=== PATIENT | female | born 1980 | race Caucasian/White ===

== ENCOUNTER → 2018-03-28 | Outpatient (CLI) | payer OTHER | LOC: M WHC 08:08 | DX: Z36.9 Encounter for antenatal screening, unspecified (principal); Z3A.17 17 weeks gestation of pregnancy | CPT/HCPCS: 76811 ==

== ENCOUNTER → 2018-04-24 | Outpatient (CLI) | payer OTHER | LOC: M RAD 16:44 | DX: O43.892 Other placental disorders, second trimester (principal); Z36.89 Encounter for other specified antenatal screening; Z3A.19 19 weeks gestation of pregnancy | CPT/HCPCS: 76816 ==

== ENCOUNTER → 2018-05-24 | Outpatient (CLI) | payer OTHER ==
[2018-05-24 14:08] LABS: BASO % 0.4 % (0.0-1.0); EOS # 0.2 10^3/uL (0.0-0.50); EOS % 1.9 % (0.0-3.0); HEMATOCRIT 33.8 % (36.0-47.0); HEMOGLOBIN 11.2 g/dl (12.0-15.5); IMMATURE GRANULOCYTE % 0.6 % (0-3.0); LYMPH # 1.6 10^3/uL (1.5-4.5); MEAN CORPUSCULAR HEMOGLOBIN 31.5 pg (27.0-33.0); MEAN CORPUSCULAR HGB CONC 33.1 g/dl (32.0-36.5); MEAN CORPUSCULAR VOLUME 94.9 fl (80.0-96.0); MONO # 0.5 10^3/uL (0.0-0.8); MONO % 4.8 % (0.0-5.0); NEUTROPHILS # 7.5 10^3/uL (1.8-7.7); NEUTROPHILS % 76.3 % (36.0-66.0); PLATELET COUNT, AUTOMATED 292 10^3/uL (150-450); RED BLOOD COUNT 3.56 10^6/uL (4.00-5.40); RED CELL DISTRIBUTION WIDTH 12.9 % (11.5-14.5); WHITE BLOOD COUNT 9.8 10^3/uL (4.0-10.0)
[2018-05-24 14:38] LABS: GLUCOSE CHALLENGE TEST 1 HOUR 104 MG/DL (LESS THAN 140)
== END ==
LOC: M SMT 08:45
DX: O09.522 Supervision of elderly multigravida, second trimester (principal)
CPT/HCPCS: 82950

== ENCOUNTER → 2018-05-27 | Outpatient (CLI) | payer OTHER | LOC: M RAD 17:20 | DX: O09.522 Supervision of elderly multigravida, second trimester (principal); Z3A.25 25 weeks gestation of pregnancy | CPT/HCPCS: 76816 ==

== ENCOUNTER 2018-06-25 18:23 | Outpatient (CLI) | payer OTHER ==
[2018-06-25] MEDS: LR 1,000 ML IV (19:55)
[2018-06-25] MEDS: BETAMETHASONE SOLUSPAN 6MG/ML INJ 5ML (J0702) IM (20:02)
[2018-06-25 20:13] LABS: BASO # 0.1 10^3/uL (0.0-0.2); BASO % 0.5 % (0.0-1.0); EOS # 0.2 10^3/uL (0.0-0.50); EOS % 1.8 % (0.0-3.0); HEMATOCRIT 34.3 % (36.0-47.0); HEMOGLOBIN 11.6 g/dl (12.0-15.5); IMMATURE GRANULOCYTE % 0.6 % (0-3.0); LYMPH # 2.3 10^3/uL (1.5-4.5); LYMPH % 18.5 % (24.0-44.0); MEAN CORPUSCULAR HEMOGLOBIN 30.8 pg (27.0-33.0); MEAN CORPUSCULAR HGB CONC 33.8 g/dl (32.0-36.5); MONO # 0.7 10^3/uL (0.0-0.8); MONO % 5.7 % (0.0-5.0); NEUTROPHILS # 9.1 10^3/uL (1.8-7.7); NEUTROPHILS % 72.9 % (36.0-66.0); PLATELET COUNT, AUTOMATED 332 10^3/uL (150-450); RED BLOOD COUNT 3.77 10^6/uL (4.00-5.40); RED CELL DISTRIBUTION WIDTH 12.1 % (11.5-14.5); WHITE BLOOD COUNT 12.5 10^3/uL (4.0-10.0)
[2018-06-25 21:06] LABS: APPEARANCE, URINE CLEAR (CLEAR); BACTERIA, URINE AUTO 1+ (NEGATIVE); BILIRUBIN, URINE AUTO NEGATIVE (NEGATIVE); BLOOD, URINE BLOOD NEGATIVE (NEGATIVE); COLOR, URINE STRAW (YELLOW); GLUCOSE, URINE (UA) AUTO NEGATIVE (NEGATIVE); KETONE, URINE AUTO TRACE mg/dL (NEGATIVE); LEUKOCYTE ESTERASE, URINE AUTO NEGATIVE (NEGATIVE); MUCUS, URINE SMALL (NEGATIVE); NITRITE, URINE AUTO NEGATIVE (NEGATIVE); PROTEIN, URINE AUTO NEGATIVE (NEGATIVE); RBC, URINE AUTO 0 /HPF (0-3); SPECIFIC GRAVITY URINE AUTO 1.003 (1.002-1.035); SQUAMOUS EPITHELIAL CELL UR AU 2 /HPF (0-6); UROBILINOGEN, URINE AUTO 0.2 mg/dL (0.0-2.0); WBC, URINE AUTO 0 /HPF (0-3)
[2018-06-26] MEDS: LR 1,000 ML IV (07:40)
[2018-06-26] MEDS: MAG Sulf (L&D) 4 GM/100 ML 4 GM in APPROPRIATE DILUENT 1 EA IV (08:37)
[2018-06-26] MEDS: LABETALOL 100 MG TAB PO (08:45)
[2018-06-26] MEDS: MAG Sulf (OBGYN) 20GM/500ML 20,000 MG in APPROPRIATE DILUENT 1 EA IV (09:02)
[2018-06-26] MEDS ORDERED: ceFAZolin SOD 1 GM in D5W MINI-BAG PLUS 50 ML IV (16:00)
== END 2018-06-26 11:00 | disposition short-term general hospital (02) ==
LOC: M LDO 18:23
DX: O26.873 Cervical shortening, third trimester (principal); Z3A.28 28 weeks gestation of pregnancy; O09.33 Supervision of pregnancy with insufficient antenatal care, third trimester; O09.293 Supervision of pregnancy with other poor reproductive or obstetric history, third trimester
CPT/HCPCS: J3475

== ENCOUNTER → 2018-06-25 | Outpatient (CLI) | payer OTHER | LOC: M RAD 17:07 | DX: O09.522 Supervision of elderly multigravida, second trimester (principal); O10.012 Pre-existing essential hypertension complicating pregnancy, second trimester; Z3A.29 29 weeks gestation of pregnancy | CPT/HCPCS: 76817 ==

== ENCOUNTER → 2018-06-25 | Outpatient (CLI) | payer OTHER ==
[2018-06-25 13:47] LABS: HEMATOCRIT 33.1 % (36.0-47.0); MEAN CORPUSCULAR HGB CONC 33.2 g/dl (32.0-36.5); MEAN CORPUSCULAR VOLUME 93.2 fl (80.0-96.0); PLATELET COUNT, AUTOMATED 325 10^3/uL (150-450); RED BLOOD COUNT 3.55 10^6/uL (4.00-5.40); RED CELL DISTRIBUTION WIDTH 12.2 % (11.5-14.5); WHITE BLOOD COUNT 10.4 10^3/uL (4.0-10.0)
[2018-06-25 14:09] LABS: GLUCOSE CHALLENGE TEST 1 HOUR 123 MG/DL (LESS THAN 140)
== END ==
LOC: M SMT 08:15
DX: Z36.89 Encounter for other specified antenatal screening (principal)
CPT/HCPCS: 82950

== ENCOUNTER → 2018-08-08 | Outpatient (CLI) | payer OTHER ==
[~2018-08-08] MED LIST: LABE10TAB PO; PRENTAB9 PO
--- NOTE | 2018-08-08 16:19 | REP ---
Obstetric sonography: History: Supervision of . growth study. Findings: Scanning through the gravid uterus demonstrates a viable single uterine gestation in a cephalic lie. motion is observed and heart rate is recorded at 136 beats per minute. An anterior grade 2 placenta is seen without evidence of previa or abruption. Amniotic fluid is subjectively normal. Umbilical cord is seen draping across neck. There has been appropriate interval growth. Transvaginal scanning demonstrates no measurable cervix. There is approximately 5 mm of cervical dilation. No abnormality is seen. The following anatomic structures are again identified and felt to be unremarkable: cranium, choroid plexus, cavum, face and profile, diaphragm, left-sided stomach, three-vessel cord, kidneys and bladder. Biometry chart: BPD 8.6 cm = 34 weeks 5 days HC 30.6 cm = 34 weeks 1 day AC 33 cm = 36 weeks 6 days FL 7.0 cm = 35 weeks 5 days HL 5.9 cm = 34 weeks 0 days HC/AC ratio normal 0.93. Cephalic index normal 0.80. Estimated weight 2835 grams, 6 pounds 4 ounces, 51st percentile for 36 weeks 0 days. DANIELE normal 8.1 cm. S/D ratio in the umbilical cord artery by Doppler is normal at 2.80. Impression: 1. Viable single intrauterine gestation at 35 weeks 1 day by today's composite criteria. Expected gestational age estimate based on prior sonography is 36 weeks 0 days. JORGE by prior sonography September 05, 2018. Appropriate interval growth. 2. No measurable cervix, approximately 5 mm of cervical dilation. Viewed transvaginally. Electronically Signed by hSree Vázquez MD 08/08/2018 06:17 P
== END ==
LOC: M RAD 14:56
PROVIDERS: ATTEND Advanced Practice Midwife
DX: O10.013 Pre-existing essential hypertension complicating pregnancy, third trimester (principal); Z3A.35 35 weeks gestation of pregnancy

== ENCOUNTER → 2018-08-09 | Outpatient (REF) | payer OTHER | LOC: M LAB REF 16:55 | PROVIDERS: ATTEND Advanced Practice Midwife | DX: Z34.83 Encounter for supervision of other normal pregnancy, third trimester (principal); Z36.89 Encounter for other specified antenatal screening ==

== ENCOUNTER 2018-08-23 16:08 | Inpatient (IN) | payer OTHER ==
[~2018-08-23] VITALS: Ht 170.2 cm; Wt 85.5 kg
[2018-08-23] MEDS ORDERED: LACTATED RINGER'S 1000 ML IV STA (16:19)
[2018-08-23 16:29] VITALS: BP 136/78
[2018-08-23] MEDS ORDERED: LR 1,000 ML IV SCH (16:41)
[2018-08-23] MEDS ORDERED: OXYTOCIN DRIP 30 UNITS in APPROPRIATE DILUENT 1 EA IV SCH (16:45)
[2018-08-23] MEDS ORDERED: COLA100C5 PO (17:04)
--- NOTE | 2018-08-23 17:04 | HPEPDOC ---
Obstetrical History & Physical General Date of Admission Aug 23, 2018 at 16:08 History of Present Illness Chief Complaint: Induction of labor, Other (CHTN and oligohydramnios) Information Provided By: Patient : 2 Term: 1 Pre-term: 0 Abortions: 0 Livin Care Care: Good Care Dating Final EDC: Sep 13, 2018 Final EDC by: LMP EGA at Admission: 37 Antepartum Course Height (inches): 67 Pre- weight (lbs.): 160 Admission Weight (lbs.): 195 Past Medical History Past Obstetrical History : Past Obstetrical History: Primgravida (01/2015) Type of Delivery: Spontaneous Vaginal Del. Sex of : Male (7#10) Complications: Yes (IOL for HTN) FORGING DIE SINKER History: No pertinent history Past Medical History Medical History CHTN vs white coat syndrome Surgical History: Denies/None Family History Significant Family History: Asthma, Hypertension Social History Marital Status: Family situation: Spouse/partner home Psychosocial History: No pertinent psych hx * Smoker: former Smoker Alcohol: Denies Drugs: denies Allergies Coded Allergies: Penicillins (Verified Allergy, Severe, THROAT CLOSES, 06/25/18) Medications Scheduled Labetalol HCl (Labetalol HCl) 100 Mg Tab, 100 MG PO DAILY Multivitamins/ ( 27-0.8 mg) 1 Tab Tab, 1 TAB PO DAILY Physical Examination Physical Examination GENERAL: Alert and oriented times three. BREAST: . ABDOMEN: Gravid and non-tender to touch. FETUS: Is vertex (VTX) by sterile vaginal examination (SVE), fetus is vertex (VTX) by Gianni. HEART RATE: Regular rate and rhythm. LUNGS: Clear to auscultation (CTA). EXTREMITIES: No edema. No clonus. Deep tendon reflexes (DTRs) + 2 Vital Signs/I&O Vital Signs Date Time Temp Pulse Resp B/P (MAP) Pulse Ox O2 Delivery O2 Flow Rate FiO2 08/23/18 16:29 98.2 81 16 136/78 (97) Laboratory Data 24H LABS Laboratory Tests 2 08/23/18 16:20: Serology Scanned Report Hepatitis B Testing Pertinent Laboratoy Data Blood Type: O+ RBC Antibody Screen: Negative HIV: Negative Hepatitis B: Negative Hepatitis C: Negative Rapid Plasma Reagin: Nonreactive Rubella: Immune Chlamydia/Gonorrhea: Negative Group B Streptococcus: Negative Quad Screen Test: Declined Glucose Tolerance Test: 123 Anatomy Ultrasound Ultrasound Date: Apr 24, 2018 Placenta Location: Anterior Normal Anatomy: Yes Placenta Previa: No Estimated Weight (grams): 394 (50%) Other Ultrasounds 03/28/18 dating 17w0d JORGE 09/05/18. Cervix 4.8cm 05/27/18 F/u Closed cervix 4.2cm,35% growth 06/25/18 DANIELE 12.6, cervix with funneling at os, growth 47% 08/08/18 AFV normal, no measurable cervix, dilated 5cm, 51%, DANIELE 8.1cm Steroid Therapy Steroid Therapy: Yes Date #1: Jun 25, 2018 (2nd dose given @ [facility]) Vaginal Examination Dilation: 4 cm (-5) Effacement: 80% Station: -1 Cervical Consistency: Soft Cervical Position: Middle Presentation: Cephalic presentation Assessment Heart Rate (FHR): 135 Variability: Moderate Accelerations: Positive Decelerations: None Tocometer Contractions: Yes Frequency: irregular Strength: palpated as mild Assessment/Plan Assessment Liya is a 37-year-old (G)2 para (P)1-0-0-1 at 37+0 weeks by 17-week ultrasound. Presents to Labor and Delivery (L&D) for induction of labor due to CHTN and oligohydramnios. has been complicated by cervical shortening and dilation resulting in transfer to [facility] @ 28wks. She is Betamethasone complete. She has remained stable and was transferred back to [facility] for the remainder of her . She has been followed for hypertension, treated with labetalol 100mg BID, growth sono's, NST's and DANIELE. Today at a routine office appt her DANIELE was noted to be 5.0, decreased from last week's reading of 8.1. She reports good movement, denies LOF, regular UC or bleeding. Plan Admit and orient per consult Dr Foy Speech Therapy Director and consent. Diet: Clear liquids. Group B Streptococcus (GBS) negative. Labs and intravenous (IV) per unit protocol. Counseled on Pitocin and induction of labor (IOL). Lactated Ringers (LR): Bolus 500 mL, then at 125 mL/hr. Pt plans to labor ad sindy Anticipate normal spontaneous delivery (). C-S as appropriate. Sarah Mccoy CNM Aug 23, 2018 17:04
[2018-08-23 17:27] VITALS: BP 119/73
[2018-08-23 17:28] LABS: HEMATOCRIT 33.5 % (36.0-47.0); HEMOGLOBIN 11.4 g/dl (12.0-15.5); MEAN CORPUSCULAR HEMOGLOBIN 30.8 pg (27.0-33.0); MEAN CORPUSCULAR VOLUME 90.5 fl (80.0-96.0); PLATELET COUNT, AUTOMATED 303 10^3/uL (150-450); WHITE BLOOD COUNT 11.2 10^3/uL (4.0-10.0)
[2018-08-23 17:48] LABS: ALT/SGPT 21 U/L (12-78); BILIRUBIN,TOTAL 0.2 MG/DL (0.2-1.0); CREATININE FOR GFR 0.51 MG/DL (0.55-1.30); GLOMERULAR FILTRATION RATE > 60.0 (>60); LDH LACTATE DEHYDROGENASE 140 U/L (84-246); URIC ACID 4.2 MG/DL (2.6-6.0)
[2018-08-23 17:57] VITALS: BP 123/72
[2018-08-23 18:28] VITALS: BP 133/74
[2018-08-23 18:45] LABS: CREATININE,RANDOM URINE 14.5 MG/DL; TOTAL PROTEIN,RANDOM URINE < 5.0 MG/DL (0.0-12.0)
[2018-08-23 18:51] VITALS: BP 119/78
[2018-08-23] MEDS: LABETALOL 100 MG TAB PO SCH (21:00)
--- NOTE | 2018-08-23 22:25 | IPNPDOC ---
Text Note Date of Service The patient was seen on 08/23/18. NOTE SROM clear fluid, moderate bloody show Pitocin @ 10mu UC 2-3 minutes x 45-60sec, moderate FH 135, Cat I SVE 6/100/0 Pt is coping well VS,Fishbone, I+O VS, Fishbone, I+O Laboratory Tests 08/23/18 17:19 Red Blood Count 3.70 L, Mean Corpuscular Volume 90.5, Mean Corpuscular Hemoglobin 30.8, Mean Corpuscular Hemoglobin Concent 34.0, Red Cell Distribution Width 12.4, Aspartate Amino Transf (AST/SGOT) 18, Alanine Aminotransferase (ALT /SGPT) 21, Lactate Dehydrogenase 140, Total Bilirubin 0.2, Uric Acid 4.2 Vital Signs Date Time Temp Pulse Resp B/P (MAP) Pulse Ox O2 Delivery O2 Flow Rate FiO2 08/23/18 18:51 74 16 119/78 (92) 08/23/18 16:29 98.2 Sarah Mccoy CNM Aug 23, 2018 22:25
[2018-08-24] MEDS ORDERED: SILVER NITRATE APPLICATOR As Ordered ONE (00:03)
[2018-08-24 00:05] LABS: CORD GAS ABE A -3.4; CORD GAS HCO3 A 25.1 MEQ/L; CORD GAS PCO2 A 58.6 mmHg; CORD GAS PH A 7.249 UNITS; CORD GAS PO2 A 25.5 mmHg; CORD GAS SBC A 20.7 MEQ/L; CORD GAS TCO2 A 26.9 MEQ/L
[2018-08-24 00:06] LABS: CORD GAS O2 SAT A 59.4 %
[2018-08-24 00:08] LABS: CORD GAS ABE V -1.7; CORD GAS HCO3 V 23.1 MEQ/L; CORD GAS O2 SAT V 58.6 %; CORD GAS PCO2 V 39.4 mmHg; CORD GAS PH V 7.386 UNITS; CORD GAS PO2 V 21.9 mmHg; CORD GAS SBC V 22.1 MEQ/L; CORD GAS TCO2 V 24.3 MEQ/L
[2018-08-24] MEDS ORDERED: OXYTOCIN 30 UNITS IN 0.9% NaCl 500ML IV BAG (J2590) As Ordered ONE (00:15)
[2018-08-24] MEDS ORDERED: OXYTOCIN DRIP 30 UNITS in APPROPRIATE DILUENT 1 EA IV SCH (00:31)
--- NOTE | 2018-08-24 00:43 | DNPDOC ---
[facility] Delivery Note Delivery Note DATE OF DELIVERY: 08/23/18 PREDELIVERY DIAGNOSIS: 37-0/7 weeks' gestation and labor. POST DELIVERY DIAGNOSIS: Delivered. PROCEDURE: Spontaneous vaginal delivery. Drainage of left vaginal wall cyst Provider: Sarah Mccoy CNM ANESTHESIA: Lidocaine for cyst drainage. ESTIMATED BLOOD LOSS: 400 mL. FINDINGS: 6 pound 12 ounce, 3070gm female infant, Score 8/9, nuchal cord times 1, tight. DELIVERY SUMMARY: Patient is a 37-year-old 2 now para 2-0-0-2 who was admitted to labor and delivery for induction of labor due to chronic hypertension and oligohydramnios. She received pitocin augmentation and labor did progress. Spontaneous rupture of membranes for small amount bloody fluid @ 2216. FD 2318. Viable female delivered YANIV via somersault maneuver through tight nuchal cord @ 2336. Spontaneous respirations, transitioned on maternal abdomen. Cord gases obtained and are pending. Cord doubly clamped and cut by FOB under my direction once pulsations ceased. Apgars 8/9. Placenta grove, intact with large perimeter clot and marginal cord insertion @ 2343. Placenta sent to pathology. Fundus firmed with massage, misoprostol 1000mg HI and pitocin IV bolus. EBL 400ml. Left vaginal wall sebaceous cyst noted. Infiltrated cyst with lidocaine and cyst drained. Lining of cyst treated with silver nitrate due to continued bleeding. Small first degree outlet laceration repaired after infiltration with lidocaine using 3-0 vicryl rapide. Sponge, sharp and instrument count correct. Parents are naming their daughter Molly. Sarah Mccoy CNM Aug 24, 2018 00:43
[2018-08-24] MEDS ORDERED: ANUSOL HC CREAM 30GM TOP PRN (00:45)
[2018-08-24] MEDS ORDERED: MOM 30ML SUSPENSION UDC PO PRN (00:45)
[2018-08-24] MEDS ORDERED: DOCUSATE SODIUM 100 MG CAP PO PRN (00:45)
[2018-08-24] MEDS ORDERED: ACETAMINOPHEN 500 MG TAB PO PRN (00:45)
[2018-08-24] MEDS ORDERED: miSOPROStol 200 MCG TAB (S0191) PR ONE (00:45)
[2018-08-24] MEDS ORDERED: RHOGAM 300 MCG (1500 IU) INJ (J2790) IM SCH (00:45)
[2018-08-24] MEDS ORDERED: DIBUCAINE 1% OINTMENT 30GM TOP PRN (00:45)
[2018-08-24] MEDS ORDERED: SILVER NITRATE APPLICATOR TOP ONE (00:45)
[2018-08-24] MEDS ORDERED: LIDOCAINE 1% MDV 20ML VIAL INFIL ONE (00:45)
[2018-08-24] MEDS ORDERED: METHYLERGONOVINE MALEATE 0.2 MG TAB PO PRN (00:45)
[2018-08-24] MEDS ORDERED: MEASLES,MUMPS,RUBELLA VACCINE INJ (MMR-II) (90707) SC SCH (00:45)
[2018-08-24] MEDS ORDERED: IBUPROFEN 800 MG TAB PO PRN (00:45)
[2018-08-24 02:46] VITALS: BP 132/68
[2018-08-24 06:12] VITALS: BP 126/59
--- NOTE | 2018-08-24 06:49 | IPNPDOC ---
Text Note Date of Service The patient was seen on 08/24/18. NOTE PP #1 Feels well. Happy with experience. but desires assist. Adequate pain management. Voiding. VSS, afebrile, normotensive Breasts soft, nipples intact Fundus firm, down 1 FB Lochia rubra light without odor Perineum intact PPD #1 Routine care. consult. Anticipate D/C in am VS,Fishbone, I+O VS, Fishbone, I+O Laboratory Tests 08/23/18 17:19 Red Blood Count 3.70 L, Mean Corpuscular Volume 90.5, Mean Corpuscular Hemoglobin 30.8, Mean Corpuscular Hemoglobin Concent 34.0, Red Cell Distribution Width 12.4, Aspartate Amino Transf (AST/SGOT) 18, Alanine Aminotransferase (ALT/SGPT) 21, Lactate Dehydrogenase 140, Total Bilirubin 0.2, Uric Acid 4.2 Vital Signs Date Time Temp Pulse Resp B/P (MAP) Pulse Ox O2 Delivery O2 Flow Rate FiO2 08/24/18 06:12 98.0 72 17 126/59 (81) I&O- Last 24 Hours up to 6 AM 08/24/18 06:00 Output Total 700 ml Balance -700 ml Sarah Mccoy CNM Aug 24, 2018 06:49
[2018-08-24] MEDS: PRENATAL VITAMINS CHEWABLE TABLET PO SCH (09:16)
[2018-08-24] MEDS: LABETALOL 100 MG TAB PO SCH ×2 (09:16→20:42)
[2018-08-24 18:00] VITALS: BP 133/67
[2018-08-25 06:00] VITALS: BP 117/67
[2018-08-25 09:03] VITALS: BP 123/60
[2018-08-25] MEDS: LABETALOL 100 MG TAB PO SCH (09:03)
[2018-08-25] MEDS: PRENATAL VITAMINS CHEWABLE TABLET PO SCH (09:03)
[2018-08-25] MEDS ORDERED: IBUP-1114 PO (09:46)
[2018-08-25] MEDS ORDERED: MAPA500T2 PO (09:46)
[2018-08-25] MEDS ORDERED: MOM30SS PO (09:47)
== END 2018-08-25 12:15 | disposition home or self-care (01) | DRG 560 ==
LOC: M LDI 16:08 → M OBS 08-24 02:14
PROVIDERS: ADMIT Advanced Practice Midwife; ATTEND Advanced Practice Midwife
PROC: 10E0XZZ Delivery of Products of Conception, External Approach (ICD-10-PCS; principal; 2018-08-23)
PROC: 0HQ9XZZ Repair Perineum Skin, External Approach (ICD-10-PCS; 2018-08-23)
PROC: 0UBG7ZZ Excision of Vagina, Via Natural or Artificial Opening (ICD-10-PCS; 2018-08-23)
DX: O41.03X0 Oligohydramnios, third trimester, not applicable or unspecified (principal); O10.92 Unspecified pre-existing hypertension complicating childbirth; Z37.0 Single live birth; Z87.891 Personal history of nicotine dependence; Z88.0 Allergy status to penicillin; N89.8 Other specified noninflammatory disorders of vagina; O26.899 Other specified pregnancy related conditions, unspecified trimester; Z3A.37 37 weeks gestation of pregnancy; O09.523 Supervision of elderly multigravida, third trimester; O70.0 First degree perineal laceration during delivery; O69.89X0 Labor and delivery complicated by other cord complications, not applicable or unspecified

== ENCOUNTER → 2018-11-12 | Outpatient (REF) | payer OTHER ==
[~2018-11-12] MED LIST changes: +COLA100C5 PO; +IBUP-1114 PO; +MAPA500T2 PO; +MOM30SS PO
[2018-11-14 14:12] LABS: HPV HYBRID CAPTURE II Negative (Negative)
== END ==
LOC: M LAB REF 15:10
PROVIDERS: ATTEND Advanced Practice Midwife
DX: Z12.4 Encounter for screening for malignant neoplasm of cervix (principal)